=== PATIENT | female | born 1975 | race Caucasian/White ===

== ENCOUNTER → 2016-07-26 | Outpatient (CLI) | payer OTHER ==
[~2016-07-26] MED LIST: ALBUTEROL2.5 MG/31 IH; AUGMENTIN 875-1 EACH PO; HYCET 7.5 MG-3473 ML PO; HYDROCODON-ACE1 EACH PO; LISINOPRIL10 MG PO; METOCLOPRAM5 MG/5 M2 PO; MIRALAX17 GM PO; NORCO 5-325 TA1 EACH PO; PREDNISONE 5 MG5 M1 PO; XANAX1 MG PO; ZOFRAN ODT4 MG PO
--- NOTE | ~2016-07-26 | EKG ---
[place] [address] [address] [facility] [place] [address] ELECTROCARDIOGRAM REPORT Name: HARRIETCAMRON Johnson [facility] [id number] Admission: 07/26/16 Attend Phys: Jose L Diaz MD, F Discharge: Date of : 73 Report #: [id number] THIS REPORT FOR: //name// [facility] Test Date: 2016-07-26 Test Time: 09:36:29 Pat Name: CAMRON LARIOS Department: Room: Gender: F Development Officer: trevin : 1975 Requested By: Jose L Diaz Order Number: [id number] MD: Jamey Artis Measurements Intervals [place] Rate: 74 P: 25 [place]: 185 QRS: 52 QRSD: 83 T: 41 QT: 378 QTc: 420 Interpretive Statements Sinus rhythm No significant abnormality No previous ECG available for comparison Electronically Signed On 07-27-2016 13:30:55 ANIMAL HERDER by Jamey Artis [email or web address] <ELECTRONICALLY SIGNED> By: Jamey Artis MD, [facility] 07/27/16 1330 0936 0936 Jamey Artis MD, FACC /EPI
[2016-07-26 10:09] LABS: ABSOLUTE NEUTROPHILS 4.4 thou/uL (1.4-8.2); BASOPHILS 1.2 % (0.0-2.0); EOSINOPHILS 2.9 % (0.0-3.0); HEMATOCRIT 45.3 % (37.0-47.0); HEMOGLOBIN 15.2 gm/dL (12.0-15.0); LYMPHOCYTES 29.4 % (24.0-44.0); MCH 29.5 pg (26.0-34.0); MCHC 33.5 % (28.0-37.0); MCV 87.9 fL (80.0-100.0); MONOCYTES 4.7 % (1.0-8.0); PLATELET COUNT 221 thou/uL (150-400); POLYS 61.8 % (36.0-66.0); RBC 5.15 mil/uL (4.20-5.00); RDW 12.8 % (10.5-14.5); WBC 7.1 thou/uL (4.0-11.0)
[2016-07-26 10:10] LABS: MANUAL DIFF NO
[2016-07-26 10:14] LABS: CREATININE 0.9 mg/dL (0.6-1.3); POTASSIUM 4.3 mmol/L (3.5-5.1)
[2016-07-26 10:20] LABS: ALBUMIN 3.6 g/dL (3.4-5.0); TOTAL BILIRUBIN 0.2 mg/dL (<0.1-1.0); TOTAL PROTEIN 7.4 g/dL (6.4-8.2)
== END ==
LOC: CV 08:58
PROVIDERS: Surgery
DX: E66.01 Morbid (severe) obesity due to excess calories (principal); R06.89 Other abnormalities of breathing

== ENCOUNTER → 2016-09-27 | Outpatient (CLI) | payer OTHER | LOC: RAD 08:56 | DX: K21.9 Gastro-esophageal reflux disease without esophagitis (principal); R47.02 Dysphasia; R10.13 Epigastric pain ==

== ENCOUNTER 2016-11-01 13:44 | Inpatient (IN) | payer OTHER ==
[~2016-11-01] VITALS: Ht 175.3 cm; Wt 107.5 kg
--- NOTE | ~2016-11-01 | H ---
[facility] [place] [address] HISTORY AND PHYSICAL Name: HARRIETCAMRON VALDIVIA Room #: 409-P ADM IN M.R.#: [id number] Admission: 11/01/16 Attend Phys: Kelby Deluna MD Discharge: Date of : 73 Report #: [id number] THIS REPORT FOR: //name// CC: Zari Escalante DATE OF SERVICE: 11/01/2016 CHIEF COMPLAINT: Nausea and vomiting. HISTORY OF PRESENT ILLNESS: The patient is a 40-year-old female who was transferred here from [facility]. The patient had bariatric surgery, gastric sleeve here in 07/2016. The patient states that she has not felt well for last month, and she had increased nausea and vomiting. Few days ago, she went to the [facility]. She was found to be dehydrated as well as she had hypokalemia and hypomagnesemia. She was treated symptomatically, but her symptoms did not significantly improve. She is being transferred here for further evaluation and treatment. The patient states that also she has had severe headaches. Teleneurologist was consulted, and she was diagnosed with a migraine. She had CT of the brain as well as CT angiography; that was essentially unremarkable. The patient was found to have questionable UTI, with elevated white count in the urine, but negative nitrite and negative leukocyte esterase. She has not received specific treatment. PAST MEDICAL HISTORY: Impaired glucose tolerance. CURRENT MEDICATIONS: Zofran 4 mg IV every 4 hours. FAMILY HISTORY: Reviewed and not pertinent to the patient's current condition. SOCIAL HISTORY: The patient is a heavy smoker. She quit smoking about a month ago. She does not drink alcohol. REVIEW OF SYSTEMS: As above in the HPI section, all others negative. PHYSICAL EXAMINATION: GENERAL: The patient is a young female who looks uncomfortable due to ongoing symptoms. VITAL SIGNS: Her blood pressure is 187/103, heart rate is 88, respirations 18 and temperature is 97.8. HEENT: Pupils are equal. Eye movements are normal. Sclerae are anicteric. Oral mucosa is moist. [facility] [address] [address] HISTORY AND PHYSICAL Name: HARRIETCAMRON JOSEMANUEL SHEA Room #: 409-P [facility] IN .R.#: [id number] Admission: 11/01/16 Attend Phys: Kelby Deluna MD Discharge: Date of : 73 Report #: [id number] NECK: Supple. The patient has no thyromegaly. She has no JVD or carotid bruits. RESPIRATORY: Chest moves symmetrically with breathing. Lungs are clear to auscultation bilaterally. CARDIOVASCULAR: The patient has regular rhythm and rate. She has no murmurs, gallops or rubs. GASTROINTESTINAL: Abdomen is soft, nondistended and nontender. Bowel sounds are present. She has no hepatomegaly or splenomegaly. MUSCULOSKELETAL: There is no edema, cyanosis or clubbing. Her range of motion is normal. NEUROLOGIC: The patient is alert and oriented x 3. Her examination is grossly nonfocal. SKIN: Skin is dry and warm. The patient has no skin lesions. LABORATORY DATA: Labs from outside hospital. Basic metabolic profile this morning was normal. CBC showed white count of 1.9; that was normal before. On urinalysis, the patient has white count between 10 and 20, and bacteria present. Leukocyte esterase and nitrites are negative. Magnesium was 1.5. CT angiography of the brain as well as CT of the brain were negative. ASSESSMENT AND PLAN: 1. Intractable nausea and vomiting during the last month. The patient had gastric sleeve surgery in 07/2016, and she successfully lost 50 pounds. General surgeon and gastroenterology team will be consulted. Consultation is very much appreciated. The patient will be treated with intravenous fluids as well as she will be treated symptomatically for nausea and vomiting. 2. Hypokalemia, replaced at the outside hospital. Related to vomiting. Electrolytes will be followed, and potassium will be replaced per protocol. 3. Migraine headaches. Will be treated symptomatically. 4. Elevated blood pressure. The patient does not have a history of hypertension. We will use hydralazine p.r.n. for now. 5. Deep venous thrombosis prophylaxis. Subcutaneous Lovenox. <ELECTRONICALLY SIGNED> By: Marnie Osborne MD 11/04/16 1247 1821 190 Marnie Osborne MD /nt
--- NOTE | ~2016-11-01 | HC ---
[facility] [place] [address] CONSULTATION Name: CAMRON LARIOS Room #: 409-P ADM IN M.R.#: [id number] Admission: 11/01/16 Attend Phys: Tacos Escalante Discharge: Date of : 73 Report #: [id number] THIS REPORT FOR: //name// CC: Zari Diaz DO Tacos Diaz MD CHIEF COMPLAINT: The patient is a 40-year-old woman who is a little more than 2 months status post gastric sleeve resection with persistent nausea and vomiting. HISTORY OF PRESENT ILLNESS: This 40-year-old woman reports that she do not have any specific GI complaints still a gastric sleeve surgery on 08/19/2016. She noted that the day following surgery, she had hematemesis. She had one other episode of hematemesis in the past week or so. However, following surgery, she developed nausea and later developed symptoms of vomiting which have progressed since that time. She notes that now she cannot keep anything down, solid or liquid. She said she would even vomit the water. When she vomits, she brings up a foamy or bilious material. She would occasionally vomit up fluid which she had eaten. She has lost about 51 pounds with her gastric sleeve surgery. She also reports she has been eating Tums nearly daily since her surgery. She denies heartburn symptoms prior to surgery. She has been told in the past she is borderline diabetic, but has never been treated for diabetes. She also has had chronic constipation and generally she does not take anything, but may go days at a time without a bowel movement. She has been seen by Dr. Jose L Diaz. A Gastrografin study done shortly after surgery did not reveal any abnormalities. She went to [facility] about 4-5 days ago when she was admitted. She also had migraine headaches and vertigo there and was evaluated for that problem. She was also seen by Gastroenterology service and no specific evaluation undertaken at that time. She was transferred to [place] last evening. She notes that she received IV Reglan about 3-4 days at [facility] and she had no improvement in her symptoms. She was also placed on PPI and her reflux symptoms are better. PAST MEDICAL HISTORY: She reports borderline diabetes. She has had problems with constipation. PAST SURGICAL HISTORY: Previous cholecystectomy, tubal ligation, total abdominal hysterectomy, bilateral salpingo-oophorectomy for mass on her ovary. She has had 3 right knee surgeries, right shoulder surgery and right thumb surgery. ALLERGIES: CIPRO results in yeast infection and she has cramps in her legs with PHENERGAN. [address] [address] CONSULTATION Name: CAMRON LARIOS SHEA Room #: 409-P ADM IN M.R.#: [id number] Admission: 11/01/16 Attend Phys: Tacos Escalante Discharge: Date of : 73 Report #: [id number] USUAL HOME MEDICINES: Only Zofran recently. FAMILY HISTORY: Adopted. SOCIAL HISTORY: Heavy smoker. She quit about a month ago. She does not consume alcohol. REVIEW OF SYSTEMS: GENERAL: Weight loss as noted above with her surgery, no fever, chills. CENTRAL NERVOUS SYSTEM: Recent problems with migraine headaches and vertigo. HEENT: Some visual problems with her vertigo. PULMONARY: Long-term cigarette smoker. She has had multiple pneumonias in the past. CARDIOVASCULAR: No chest pain, chest tightness or palpitations. GASTROINTESTINAL: Recent nausea, vomiting, recent hematemesis, chronic constipation. She has had bouts of abdominal pain in the past. GENITOURINARY: Without dysuria or pyuria. GYNECOLOGIC: Previous hysterectomy. No breast problems. MUSCULOSKELETAL: Multiple joint surgeries and some arthritis. SKIN: Without rashes. PSYCHIATRIC: She has been treated for depression in the past with Zofran and Xanax. HEMATOLOGIC: No bleeding, bruising, malignancy. ENDOCRINE: Borderline diabetes, questionable thyroid problems in the past. PHYSICAL EXAMINATION: GENERAL: Well-developed, well-nourished obese woman in no acute distress. Room is dark, curtains closed, lights off. VITAL SIGNS: Blood pressure 183/97, pulse 60, temperature 98.3. HEENT: Anicteric. Pupils equal and round, oropharynx clear. NECK: Supple. CHEST: Clear. HEART: Regular rate and rhythm, normal S1, S2. ABDOMEN: Normal bowel sounds, soft with very mild tenderness, no rebound, or rigidity. No hepatosplenomegaly. RECTAL: Not done. EXTREMITIES: Without cyanosis, clubbing, or edema. NEUROLOGIC: Oriented to person, place, time. Moves all 4 extremities well. LABORATORY STUDIES: White count of 2.6, hemoglobin 12, platelet count 146,000. Electrolytes normal. BUN of 2, creatinine 0.6. Blood glucose 96. Calcium 8.0, magnesium 2.2, total bilirubin 0.7. AST was initially 75 and has dropped to 47 overnight. ALT is 112, has dropped to 87. Total protein 6, albumin 3.0. Urinalysis unremarkable. CT abdomen and pelvis done here on 09/15, changes of gastric sleeve and cholecystectomy, hysterectomy, no other abnormalities were [facility] [address] [place] [address] CONSULTATION Name: CAMRON LARIOS Room #: 409-P ADM IN M.R.#: [id number] Admission: 11/01/16 Attend Phys: Tacos Escalante Discharge: Date of : 73 Report #: [id number] noted. ASSESSMENT AND PLAN: 1. Status post gastric sleeve surgery with nausea and vomiting, persistent symptoms. She did not respond to Reglan per her report with no improvement of plan for upper endoscopy first part of the week. 2. Reflux symptoms. She is consuming the large number of Tums. Reflux may be part of the problem. 3. Morbid obesity, with recent weight loss. 4. History of depression. 5. Multiple abdominal surgeries. 6. Migraines headaches. This may be a fact with nausea and vomiting as well. 7. Vertigo. <ELECTRONICALLY SIGNED> By: Deepak Mcdowell MD 11/03/16 1113 1034 0034 Deepak Mcdowell MD /nt
--- NOTE | ~2016-11-01 | HC ---
[facility] [place] [address] CONSULTATION Name: HARRIETCAMRON VALDIVIA Room #: 409-P ADM IN M.R.#: [id number] Admission: 11/01/16 Attend Phys: Kelby Deluna MD Discharge: Date of : 73 Report #: [id number] THIS REPORT FOR: //name// CC: Zari Escalante DATE OF SERVICE: 11/03/2016 HISTORY OF PRESENT ILLNESS: The patient is a 40-year-old female who presents with headache. The patient states that for the past month she has had a headache every day. Typically, she might have a headache once or twice a week. She has two types of headaches, the first are tension headaches, which she describes as a holocephalic squeezing sensation lasting several hours and the second are migraine headaches, which she describes as a unilateral stabbing sensation. For the past month, she has had a very intense headache, which she describes as a 10. She wakes up with these headaches and goes to sleep with these headaches. She has received IV medication well. She has been in the hospital and she states that now the headache is gone from a 10-5. It is no longer a sharp stabbing headache, but more of a dull holocephalic aching sensation. Looking through the patient's medications, she may have received ketorolac, but has several other IV medications, so it is difficult to know exactly what the patient was referring to when she stated that she had received a migraine cocktail. The patient was admitted to the hospital 2 days ago, she was admitted from [facility]. She had had a gastric sleeve in 07/2016 and had not been feeling well for the past months experiencing increasing nausea and vomiting. At that time, the patient was dehydrated and had hypokalemia and hypomagnesemia. Even though she was treated, she did not improve and was transferred to [facility] for further treatment. The patient has had a CT of the brain as well as CT angiography. This was unremarkable. PAST MEDICAL HISTORY: Impaired glucose tolerance. PAST SURGICAL HISTORY: Gastric sleeve. MEDICATIONS: Antivert 25 mg t.i.d. p.r.n., Apresoline 10 mg q. 6 hours p.r.n., diphenhydramine 12.5 mg q. 6 hours p.r.n., Lovenox 40 mg subcutaneous at bedtime, fentanyl 50 mcg q. 3 hours p.r.n., ketorolac 30 mg IV q. 8 hours p.r.n., metoclopramide 10 mg IV q. 6 hours, ondansetron 4 mg p.o. q. 6 hours p.r.n., pantoprazole 40 mg IV b.i.d., prochlorperazine 5 mg IV q. 4 hours p.r.n., Zofran 8 mg IV q. 6 hours. ALLERGIES: PHENERGAN. PHYSICAL EXAMINATION: [facility] [address] [place] [address] CONSULTATION Name: CAMRON LARIOS SHEA Room #: 409-P [facility] IN M.R.#: [id number] Admission: 11/01/16 Attend Phys: Kelby Deluna MD Discharge: Date of : 73 Report #: [id number] VITAL SIGNS: Temperature 36.7, pulse rate 67, respiratory rate 20, blood pressure 127/83, bedside pulse oximetry 97. NEUROLOGIC: Cranial nerves 2-12 are grossly intact. Motor exam demonstrates symmetric strength in all 4 extremities with tone and bulk normal. Reflexes are trace throughout. Plantar responses are flexor. Coordination reveals intact [id number]. Gait was not tested. LABORATORY DATA: WBC count 4.6, hemoglobin 11.9, hematocrit 33.6, MCV 83.4, platelet count 148,000. Urinalysis, trace protein, trace ketones, greater than 8 urobilinogen. Chemistry: Sodium 139, potassium 3.5, chloride 105, carbon dioxide 26, BUN 3, creatinine 0.6, GFR 110, glucose 102, calcium 8.3, magnesium 2.2, total bilirubin 0.7, AST 47, ALT 87, alkaline phosphatase 110, albumin 3, thiamine level pending, pyridoxal phosphate pending, B12 1139. IMPRESSION: This patient has developed chronic daily headache and at this point, it is difficult to know why she has developed this, but she does need to break the headache cycle and this can be done with Toradol. She rather than giving the Toradol p.r.n., I would like to see the medication given every 8 hours for the next 24 hours to see how intense the headache is by tomorrow. Other medication options would include the addition of a preventative medication, typically Depakote is used, but with the mild elevation in some of her liver functions, I would prefer not to do this. Other medications that could be tried include Levetiracetam. An oral medication that can also be tried is topiramate if she is able to eat. I do see that she has a diet ordered and perhaps 25 mg of topiramate could be ordered at bedtime as well. I thank you for your kind referral of the patient and will continue to follow her with you. <ELECTRONICALLY SIGNED> By: Chantelle Penny DO 11/04/16 0855 1058 2238 Chantelle Penny DO /janey
--- NOTE | ~2016-11-01 | HC ---
[facility] [place] [address] CONSULTATION Name: HARRIETCAMRON VALDIVIA Room #: 409-P ADM IN M.R.#: [id number] Admission: 11/01/16 Attend Phys: Kelby Deluna MD Discharge: Date of : 73 Report #: [id number] THIS REPORT FOR: //name// CC: Zari Escalante DATE OF SERVICE: 11/02/2016 REASON FOR CONSULTATION: Persistent nausea, vomiting and abdominal pain. HISTORY OF PRESENT ILLNESS: This is a 40-year-old female patient known to me from prior laparoscopic sleeve gastrectomy, performed on 08/19/2016. The patient had difficulty with persistent nausea and vomiting since her operation. She has had difficulty progressing through the bariatric protocol diet. She had difficulty with being able to keep anything down whatsoever including both solids and liquids. She has been seen in the office multiple times and has undergone a Gastrografin study on postoperative day 1, as per protocol. With her complaints, she was sent for an upper GI series in late August, which showed delayed esophageal and gastric motility with no obstruction or gastric leak status post sleeve gastrectomy. With her persistent symptoms, she went to the [facility] and was admitted unbeknownst to me. I received a call from [facility] about their wanting to transfer her, which we gladly accepted. The patient is being seen for further evaluation and treatment. PAST MEDICAL HISTORY: Significant for morbid obesity, arthritis, gastroesophageal reflux disease, headaches, depression, anxiety, hypertension, and asthma. PAST SURGICAL HISTORY: Tubal ligation in 2004, laparoscopic cholecystectomy in 2007, hysterectomy in 2012, right knee surgery in 2013 and right shoulder surgery in 2014. Recently, she underwent laparoscopic sleeve gastrectomy with EGD on 08/19/2016. MEDICATIONS: Include Topamax, Toradol, meclizine, fentanyl, pantoprazole, Compazine, Reglan, Lovenox, and p.r.n. medications. ALLERGIES: No known drug allergies. FAMILY HISTORY: Reviewed and noncontributory to this hospitalization. SOCIAL HISTORY: The patient denies tobacco use (quit smoking cigarettes within the past several weeks, sometime after she had undergone the sleeve gastrectomy). Denies use of alcohol or illicit drugs. Works at [employer] in [place], [place]. [address] [address] CONSULTATION Name: HARRIETCAMRON VALDIVIA Room #: [address] [place] [address] IN M..#: [id number] Admission: 11/01/16 Attend Phys: Kelby Deluna MD Discharge: Date of : 73 Report #: [id number] REVIEW OF SYSTEMS: As per history of present illness. In addition, GENERAL: The patient reports weight loss of 50 pounds since her operation. Denies fever or chills. HEENT: Denies changes in taste, vision, hearing, or smell. RESPIRATORY: Denies shortness of breath, COPD or asthma. CARDIOVASCULAR: Denies chest pain or palpitations. GASTROINTESTINAL: As per history of present illness. In addition, she notes abdominal pain diffusely. Denies bright red blood per rectum. Has had hematemesis on 2 separate occasions. GENITOURINARY: Denies dysuria, urgency, increased urinary frequency or hematuria. MUSCULOSKELETAL: Denies myalgia or arthralgia and has arthritis. NEUROLOGIC: Has noticed some numbness and tingling of the extremities and complains of headaches. PSYCHIATRIC: Has a history of depression and anxiety. Denies suicidal ideations. SKIN AND INTEGUMENTARY: Denies new skin lesions, rashes, moles or jaundice. ENDOCRINE: Denies polydipsia, polyuria, heat or cold intolerance. HEMATOLOGIC: Denies easy bleeding or bruising. All other review of systems is negative. PHYSICAL EXAMINATION: VITAL SIGNS: Temperature 98.3, blood pressure 183/97, pulse 60 and respirations 18. GENERAL: This is an obese 40-year-old female patient in no acute distress, although she appears uncomfortable. HEENT: Atraumatic and normocephalic. NECK: Supple, no appreciable lymphadenopathy. Trachea is midline. CHEST: Clear bilaterally. CARDIOVASCULAR: Regular rate and rhythm/mild sinus bradycardia. S1, S2. ABDOMEN: Soft and diffusely tender to palpation with no rebound or guarding. No palpable masses, no appreciable hernias. Her laparoscopic port site wounds are well healed. GENITOURINARY: Normal external female genitalia. EXTREMITIES: No clubbing, cyanosis or edema. NEUROLOGIC: Cranial nerves 2-12 grossly intact. PSYCHIATRIC: Depressed mood with a flat affect. SKIN AND INTEGUMENTARY: No acute inflammatory changes, rashes or lesions are present. LABORATORY DATA: CBC shows a white blood cell count 2.6, hemoglobin 12.0, hematocrit 34.2 and platelets 146. Her electrolytes showed a sodium 137, potassium 3.6, chloride 102, CO2 24, BUN 2, creatinine 0.6 and glucose 96. AST and ALT were both elevated at 47 and 87 respectively. The remainder of her liver function tests and alkaline phosphatase were within normal limits. Magnesium was normal at 2.2. Urinalysis showed trace protein and trace ketones [address] [address] CONSULTATION Name: CAMRON LARIOS Room #: 409-P [facility] IN .R.#: [id number] Admission: 11/01/16 Attend Phys: Kelby Deluna MD Discharge: Date of : 73 Report #: [id number] with greater than 8 urobilinogen. IMPRESSION AND PLAN: This is a 40-year-old female patient who is status post laparoscopic sleeve gastrectomy in late July 2016, over 2 months ago. The patient has had difficulty with persistent abdominal pain, nausea and vomiting. This may be secondary to either a prolonged inflammatory process involving her sleeve gastrectomy versus gastroparesis versus a possible hiatal hernia versus abnormal gastric sleeve anatomy (twisting,/mild torsion, not appreciable on the upper GI series). The patient has been evaluated by Gastroenterology. I discussed this case with Dr. Mcdowell with the GI service and at this point in time, it is safe for the patient to undergo endoscopic evaluation. Further recommendations will be made pending results of this study. In the meantime, the patient should be on twice daily proton pump inhibitors and H2-receptor blockers and be kept n.p.o. until she is able to tolerate oral intake. We will also order vitamin levels and give her both IV fluids and IV vitamins. We will follow along with serial abdominal exams as well as labs and x-rays as necessary. I appreciate the GI consult and appreciate your allowing me to participate in the care of this patient. Further recommendations and orders will be left in the electronic medical record as appropriate. <ELECTRONICALLY SIGNED> By: Jose L Diaz MD, FACS 11/04/16 0843 0033 0322 Jose L Diaz MD, FACS /nt
[2016-11-01 15:50] VITALS: BP 187/103
[2016-11-01 19:24] LABS: ABSOLUTE NEUTROPHILS 1.9 thou/uL (1.4-8.2); BASOPHILS 0.6 % (0.0-2.0); EOSINOPHILS 1.2 % (0.0-3.0); HEMATOCRIT 36.9 % (37.0-47.0); HEMOGLOBIN 12.7 gm/dL (12.0-15.0); LYMPHOCYTES 32.5 % (24.0-44.0); MCH 28.8 pg (26.0-34.0); MCHC 34.4 g/dL (28.0-37.0); MCV 83.6 fL (80.0-100.0); MONOCYTES 11.1 % (1.0-8.0); PLATELET COUNT 163 thou/uL (150-400); POLYS 54.6 % (36.0-66.0); RBC 4.42 mil/uL (4.20-5.00); WBC 3.5 thou/uL (4.0-11.0)
[2016-11-01 19:26] LABS: MANUAL DIFF NO
[2016-11-01 19:37] LABS: ALBUMIN 3.3 g/dL (3.4-5.0); CALCIUM 8.3 mg/dL (8.5-10.1); CREATININE 0.8 mg/dL (0.6-1.0); MAGNESIUM 2.3 mg/dL (1.8-2.4); POTASSIUM 3.3 mmol/L (3.5-5.1); TOTAL BILIRUBIN 0.7 mg/dL (<0.1-1.0); TOTAL PROTEIN 6.6 g/dL (6.4-8.2)
[2016-11-01 19:48] LABS: URINE BILIRUBIN NEGATIVE (Negative); URINE BLOOD NEGATIVE (Negative); URINE COLOR YELLOW; URINE GLUCOSE-RANDOM* NEGATIVE (Negative); URINE KETONES TRACE (Negative); URINE NITRITE NEGATIVE (Negative); URINE PROTEIN (DIPSTICK) TRACE (Negative); URINE SPECIFIC GRAVITY >= 1.030 (1.003-1.035); URINE UROBILINOGEN >= 8.0 E.U./dl (0.2-1.0)
[2016-11-01 20:00] VITALS: BP 160/99
[2016-11-02] VITALS (7 sets, daily range): BP systolic 121–183; BP diastolic 84–101
[2016-11-02 04:25] LABS: HEMATOCRIT 34.2 % (37.0-47.0); MCH 29.4 pg (26.0-34.0); MCHC 35.2 g/dL (28.0-37.0); MCV 83.6 fL (80.0-100.0); PLATELET COUNT 146 thou/uL (150-400); RBC 4.09 mil/uL (4.20-5.00); RDW 13.7 % (10.5-14.5); WBC 2.6 thou/uL (4.0-11.0)
[2016-11-02 04:32] LABS: MANUAL DIFF YES
[2016-11-02 05:01] LABS: ABSOLUTE NEUTROPHILS 1.4 thou/uL (1.4-8.2); TOTAL CELL COUNT 100
[2016-11-02 06:16] LABS: CREATININE 0.6 mg/dL (0.6-1.0); POTASSIUM 3.6 mmol/L (3.5-5.1); TOTAL BILIRUBIN 0.7 mg/dL (<0.1-1.0)
[2016-11-03 04:05] VITALS: BP 124/88
[2016-11-03 04:22] LABS: HEMATOCRIT 33.6 % (37.0-47.0); HEMOGLOBIN 11.9 gm/dL (12.0-15.0); MCH 29.5 pg (26.0-34.0); MCHC 35.3 g/dL (28.0-37.0); MCV 83.4 fL (80.0-100.0); RBC 4.03 mil/uL (4.20-5.00); RDW 14.1 % (10.5-14.5); WBC 4.6 thou/uL (4.0-11.0)
[2016-11-03 04:29] LABS: CALCIUM 8.3 mg/dL (8.5-10.1); CREATININE 0.6 mg/dL (0.6-1.0); POTASSIUM 3.5 mmol/L (3.5-5.1)
[2016-11-03 08:00] VITALS: BP 127/83
[2016-11-03 16:00] VITALS: BP 130/90
[2016-11-03 20:00] VITALS: BP 129/91
[2016-11-04 04:00] VITALS: BP 145/83
[2016-11-04 06:29] LABS: CALCIUM 8.6 mg/dL (8.5-10.1); CREATININE 0.8 mg/dL (0.6-1.0)
[2016-11-04 07:37] VITALS: BP 108/74
[2016-11-04 16:20] VITALS: BP 109/64
[2016-11-04 19:36] VITALS: BP 117/60
[2016-11-05 03:47] VITALS: BP 135/83
[2016-11-05 08:00] VITALS: BP 126/83
[2016-11-05] MEDS ORDERED: TOPAMAX 25 MG T25 M1 PO (10:26)
[2016-11-05] MEDS ORDERED: ZOFRAN ODT4 MG PO (10:26)
[2016-11-05] MEDS ORDERED: REGLAN 10 MG TA10 MG PO (10:26)
[2016-11-05 11:48] VITALS: BP 126/83
[2016-11-05 14:08] LABS: VITAMIN B6 (PYRIDOXAL 5-PHOS) 1.6 ug/L (2.0-32.8)
== END 2016-11-05 12:51 | disposition home or self-care (01) | DRG 392 ==
LOC: 4N 13:44
PROVIDERS: Hospitalist; Internal Medicine Endocrinology, Diabetes & Metabolism; Surgery
DX: R11.2 Nausea with vomiting, unspecified (principal); E87.6 Hypokalemia; F32.9 Major depressive disorder, single episode, unspecified; K21.9 Gastro-esophageal reflux disease without esophagitis; I10 Essential (primary) hypertension; E66.01 Morbid (severe) obesity due to excess calories; Z68.35 Body mass index [BMI] 35.0-35.9, adult; Z79.899 Other long term (current) drug therapy; Z98.84 Bariatric surgery status; R42 Dizziness and giddiness; G43.909 Migraine, unspecified, not intractable, without status migrainosus; F17.210 Nicotine dependence, cigarettes, uncomplicated; M19.90 Unspecified osteoarthritis, unspecified site; F41.9 Anxiety disorder, unspecified; K59.00 Constipation, unspecified; J45.909 Unspecified asthma, uncomplicated; Z90.49 Acquired absence of other specified parts of digestive tract; Z90.3 Acquired absence of stomach [part of]; Z88.8 Allergy status to other drugs, medicaments and biological substances; Z90.710 Acquired absence of both cervix and uterus; Z90.722 Acquired absence of ovaries, bilateral; Z88.1 Allergy status to other antibiotic agents
CPT/HCPCS: 10091

== ENCOUNTER 2016-11-23 20:04 | Emergency (ER) | payer OTHER ==
[~2016-11-23] VITALS: Ht 175.3 cm; Wt 100.7 kg
[~2016-11-23 20:04] MED LIST changes: +REGLAN 10 MG TA10 MG PO; +TOPAMAX 25 MG T25 M1 PO
[2016-11-23 20:55] LABS: ABSOLUTE NEUTROPHILS 2.7 thou/uL (1.4-8.2); BASOPHILS 1.2 % (0.0-2.0); EOSINOPHILS 2.8 % (0.0-3.0); HEMATOCRIT 37.6 % (37.0-47.0); HEMOGLOBIN 12.8 gm/dL (12.0-15.0); LYMPHOCYTES 37.7 % (24.0-44.0); MCH 30.3 pg (26.0-34.0); MCHC 34.1 g/dL (28.0-37.0); MCV 88.9 fL (80.0-100.0); MONOCYTES 6.2 % (1.0-8.0); PLATELET COUNT 202 thou/uL (150-400); POLYS 52.1 % (36.0-66.0); RBC 4.23 mil/uL (4.20-5.00); WBC 5.3 thou/uL (4.0-11.0)
[2016-11-23 20:58] LABS: MANUAL DIFF NO
[2016-11-23 21:04] LABS: CREATININE 0.6 mg/dL (0.6-1.0); POTASSIUM 3.3 mmol/L (3.5-5.1)
[2016-11-23 21:08] LABS: ALBUMIN 3.4 g/dL (3.4-5.0); TOTAL BILIRUBIN 0.5 mg/dL (<0.1-1.0); TOTAL PROTEIN 6.8 g/dL (6.4-8.2)
[2016-11-23 21:48] LABS: URINE BILIRUBIN 3+ (Negative); URINE BLOOD NEGATIVE (Negative); URINE COLOR YELLOW; URINE GLUCOSE-RANDOM* NEGATIVE (Negative); URINE KETONES 3+ (Negative); URINE LEUKOCYTES-REFLEX TRACE (Negative); URINE PROTEIN (DIPSTICK) 1+ (Negative); URINE SPECIFIC GRAVITY >= 1.030 (1.003-1.035)
[2016-11-23 21:52] LABS: ICTOTEST (BILI CONFIRMATORY) Positive (Negative)
[2016-11-23 22:03] LABS: SQUAMOUS >10 Many /LPF (0-3)
[2016-11-23 22:04] LABS: CASTS None Seen /LPF (None Seen)
[2016-11-23 22:05] LABS: CRYSTALS None Seen /LPF (None Seen); TRANSITIONAL EPITHEL CELL 0-3 Few /LPF (None Seen); URINE RBC 0-2 Rare /HPF (0-2)
[2016-11-23] MEDS ORDERED: MACROBID 100 M100 M1 PO (22:27)
[2016-11-23] MEDS ORDERED: NAPROXEN375 MG PO (22:27)
== END 2016-11-23 22:55 | disposition home or self-care (01) ==
LOC: ER 20:04
PROVIDERS: Emergency Medicine
DX: N39.0 Urinary tract infection, site not specified (principal); I10 Essential (primary) hypertension; G43.909 Migraine, unspecified, not intractable, without status migrainosus; F17.210 Nicotine dependence, cigarettes, uncomplicated; Z98.84 Bariatric surgery status; Z90.49 Acquired absence of other specified parts of digestive tract; Z90.710 Acquired absence of both cervix and uterus; Z88.8 Allergy status to other drugs, medicaments and biological substances

== ENCOUNTER → 2016-12-09 | Outpatient (CLI) | payer OTHER ==
[~2016-12-09] MED LIST changes: +MACROBID 100 M100 M1 PO; +NAPROXEN375 MG PO; +ONDANSETRON HCL4 M2 PO
[2016-12-09 16:42] VITALS: BP 130/86
== END ==
LOC: OPONC 11-26 08:18
DX: E86.0 Dehydration (principal)
CPT/HCPCS: 95000; 95001

== ENCOUNTER → 2016-12-25 | Outpatient (CLI) | payer OTHER ==
[2016-12-25 12:30] VITALS: BP 145/83
== END ==
LOC: OPONC 11:54
DX: E86.0 Dehydration (principal)
CPT/HCPCS: 95000; 95001

== ENCOUNTER → 2017-01-31 | Outpatient (CLI) | payer OTHER ==
[2017-01-31 14:28] VITALS: BP 125/80
== END ==
LOC: OPONC 01:06
DX: E86.0 Dehydration (principal)
CPT/HCPCS: 95000; 95001